=== PATIENT | female | born 1930 | race Caucasian/White ===

== ENCOUNTER 2017-03-28 07:57 | Emergency (ER) | payer MEDICARE ==
--- NOTE | 2017-03-28 08:44 | UC ---
Respiratory Complaint HPI - HPI Summary HPI Summary: 86 yo female with a 2 day hx of cough/wheezing/dyspnea no CP has felt weak and unsteady which she attributes to decreased oral intake had 7 teeth removed a few weeks ago and now is on soft diet/ensure no f/c no leg edema - History of Current Complaint Chief Complaint: UCRespiratory Stated Complaint: SOB-TROUBLE BREATHING Time Seen by Provider: 03/28/17 08:24 Hx Obtained From: Patient Onset/Duration: Gradual Onset, Lasting Days Timing: Constant Severity Initially: Mild Severity Currently: Moderate Pain Intensity: 3 Pain Scale Used: 0-10 Numeric Character: Cough: Nonproductive Aggravating Factors: Exertion Alleviating Factors: Nothing Associated Signs And Symptoms: Positive: Wheezing - Allergies/Home Medications Allergies/Adverse Reactions: Allergies Allergy/AdvReac Type Severity Reaction Status Date / Time Adhesive Tape Allergy Blisters Verified 03/28/17 08:18 Home Medications: Home Medications Aspirin EC TAB* [Ecotrin EC TAB*] 325 mg PO DAILY 03/28/17 [History Confirmed ] Biotin 1 mg PO DAILY 03/28/17 [History Confirmed 03/28/17] Hljetva-Frqnlzfkv-[id number] [Calcium & Magnesium + Zin 334-134-5 mg] 1 tab PO DAILY 03/28/17 [History Confirmed 03/28/17] Cranberry (Vaccinium Macrocarp [Cranberry] 2 pow XX DAILY 03/28/17 [History Confirmed 03/28/17] Cyanocobalamin [B12] 1,000 mcg PO DAILY 03/28/17 [History Confirmed 03/28/17] Diphenhydramine-Acetaminophen [Tylenol Pm Extra Strength 500-25 mg] 1 tab PO QPM 03/28/17 [History Confirmed 03/28/17] Fluticasone-Salmeterol 250-50* [Advair Diskus 250-50*] 1 puff INH BID 03/28/17 [ History Confirmed 03/28/17] Hydralazine HCl 50 mg PO BID 03/28/17 [History Confirmed 03/28/17] Levothyroxine Sodium [Synthroid] 75 mcg PO DAILY 03/28/17 [History Confirmed ] Linagliptin (NF) [Tradjenta (NF)] 5 mg PO DAILY 03/28/17 [History Confirmed ] Metformin HCl [Metformin Hydrochloride] 850 mg PO BID 03/28/17 [History Confirmed 03/28/17] Metoprolol Tartrate [Lopressor] 100 mg PO BID 03/28/17 [History Confirmed ] Multiple Vitamin [Multi Vitamin] 1 tab PO DAILY 03/28/17 [History Confirmed ] Quinapril HCl 40 mg PO BID 03/28/17 [History Confirmed 03/28/17] Venlafaxine TAB (NF) [Effexor TAB (NF)] 150 mg PO DAILY 03/28/17 [History Confirmed 03/28/17] PMH/Surg Hx/FS Hx/Imm Hx Endocrine History Of: Reports: Diabetes Denies: Thyroid Disease Cardiovascular History Of: Reports: Cardiac Disorders, Hypertension Denies: Congestive Heart Failure Respiratory History Of: Reports: COPD - Surgical History Surgical History: None Surgery Procedure, Year, and Place: open heart surgery , right knee replacement, pneumonia-on ventilator. - Family History Known Family History: Positive: Hypertension, Diabetes - Social History Alcohol Use: None Substance Use Type: None Smoking Status (MU): Former Smoker Review of Systems Constitutional: Negative Skin: Negative Eyes: Negative ENT: Negative Respiratory: Shortness Of Breath, Cough Cardiovascular: Negative Gastrointestinal: Negative Genitourinary: Negative Motor: Negative Neurovascular: Negative Musculoskeletal: Negative Neurological: Negative Psychological: Negative All Other Systems Reviewed And Are Negative: Yes Physical Exam Triage Information Reviewed: Yes Appearance: Well-Appearing, No Pain Distress, Well-Nourished Vital Signs: Initial Vital Signs Temp 96.8 F 03/28/17 08:09 Pulse 83 03/28/17 08:09 Resp 16 03/28/17 08:09 BP 138/70 03/28/17 08:09 Pulse Ox 97 03/28/17 08:09 Vital Signs Reviewed: Yes Eyes: Positive: Conjunctiva Clear ENT: Positive: Hearing grossly normal. Negative: Nasal congestion, Nasal drainage, Tonsillar exudate, Trismus, Muffled/hoarse voice Neck: Positive: Supple, Nontender Respiratory: Positive: No respiratory distress, No accessory muscle use, Crackles - both bases Cardiovascular: Positive: RRR. Negative: Tachycardia, Bradycardia Musculoskeletal: Positive: ROM Intact, No Edema Neurological: Positive: Alert Skin Exam: Normal UC Diagnostic Evaluation - Laboratory O2 Sat by Pulse Oximetry: 97 - normal/not hypoxic - Radiology Xray Interpretation: Positive (See Comments) - ? small effusions Radiology Interpretation Completed By: Radiologist Respiratory Course/Dx - Course Course Of Treatment: fells better after neb rx - Differential Dx/Diagnosis Provider Diagnoses: acute exacerbation of copd Discharge - Discharge Plan Condition: Stable Disposition: HOME Prescriptions: Amoxicillin (*) [Amoxicillin 875 MG (*)] 875 mg PO BID #14 tab Patient Education Materials: Acute Bronchitis (ED) Referrals: Anthony Zavaleta MD [Primary Care Provider] - 2 Days Additional Instructions: use inhaler as directed recheck early this week your XR was suggestive of small pleural effusions (fluid at the base of the lungs). I don't know if this is a new finding
--- NOTE | 2017-03-28 08:56 | RAD ---
INDICATION: History of cardiac valve replacement and remote history of smoking. Wheezing, shortness of breath, cough. COMPARISON: June 30, 2011 CT. TECHNIQUE: Dual energy PA and routine lateral views of the chest were obtained. REPORT: Elevated lung volumes and moderate prominence of the interstitial markings. No confluent alveolar consolidation, focal pulmonary lesion, pneumothorax. Suggestion of small bilateral pleural effusions. Mild cardiomegaly. Unremarkable central pulmonary vasculature. Ectatic thoracic aorta without gross change. IMPRESSION: Stigmata of chronic obstructive pulmonary disease. Small pleural effusions. Mild interstitial edema not excluded.
[2017-03-28] MEDS ORDERED: Albuterol 2.5 MG/3 ML NEB.SOL* (0.083%) INH ONE (08:59)
[2017-03-28] MEDS ORDERED: Ipratropium 0.5MG/2.5ML NEB* 0.5 MG/2.5 ML NEB.SOLN INH ONE (08:59)
[2017-03-28] MEDS ORDERED: Albuterol HFA INHALER* 8 gm MDI INH ONE (09:48)
[2017-03-28 10:20] VITALS: BP 130/100
== END 2017-03-28 10:10 | disposition home or self-care (01) ==
LOC: UCCORT 07:57
DX: J44.1 Chronic obstructive pulmonary disease with (acute) exacerbation (principal); J45.901 Unspecified asthma with (acute) exacerbation; E11.9 Type 2 diabetes mellitus without complications; I10 Essential (primary) hypertension; I51.9 Heart disease, unspecified; Z79.84 Long term (current) use of oral hypoglycemic drugs; Z79.82 Long term (current) use of aspirin; Z96.651 Presence of right artificial knee joint; Z87.891 Personal history of nicotine dependence
CPT/HCPCS: 71020; 99213; A9270-GY; G0463; J7644